=== PATIENT | female | born 1930 | race Caucasian/White ===

== ENCOUNTER 2016-07-25 07:41 | Day surgery (SDC) | payer OTHER ==
[2016-07-25] MEDS ORDERED: ceFAZolin 2 GM/DEXTROSE 100 ML IV ONE (07:50)
[2016-07-25] MEDS ORDERED: BACITRACIN IRRIGATION/NS 50,000 UNITS/1,000 ML BTL IRR ONE (07:50)
[2016-07-25] MEDS ORDERED: DIAZEPAM 5 MG TAB PO ONE (07:50)
[2016-07-25] MEDS ORDERED: diphenhydrAMINE 25 MG CAP PO ONE (07:50)
[2016-07-25] MEDS ORDERED: NS 1,000 ML IV ONE (07:50)
--- NOTE | 2016-07-25 08:10 | CPEKG ---
Heart Rate: 108 RR Interval: 556 P-R Interval: 120 QRSD Interval: 170 QT Interval: 340 QTC Interval: 456 P [place]: 0 QRS [place]: 0 EKG Severity - ABNORMAL ECG - EKG Impression: A-V DUAL-PACED COMPLEXES W/ SOME INHIBITION Electronically Signed By: Duane Berger 26-Jul-2016 09:30:46
[2016-07-25 08:25] LABS: % IMMATURE GRANULYOCYTES 0.2 % (0.0-1.1); ABSOLUTE IMMATURE GRANULOCYTES 0.01 10^3/uL (0.00-0.10); ADD DIFF? NO; ADD MORPH? NO; ADD SCAN? NO; ATYPICAL LYMPHOCYTE FLAG 20 (0-99); FRAGMENT RBC FLAG 0 (0-99); HEMATOCRIT 33.1 % (38.0-47.0); HEMOGLOBIN 11.1 g/dL (12.6-16.3); LEFT SHIFT FLG 0 (0-99); LIPEMIA HEMOLYSIS FLAG 80 (0-99); MEAN CELL HEMOGLOBIN 34.5 pg (27.9-34.1); MEAN CELL HEMOGLOBIN CONCENTR. 33.5 g/dL (32.4-36.7); MEAN CELL VOLUME 102.8 fL (81.5-99.8); MEAN PLATELET VOLUME 9.3 fL (8.7-11.7); PLATELET CLUMPS FLAG 10 (0-99); PLATELET COUNT 176 10^3/uL (150-400); RED BLOOD CELL COUNT 3.22 10^6/uL (4.18-5.33); RED CELL DISTRIBUTION WIDTH 12.6 % (11.5-15.2)
[2016-07-25 08:36] LABS: ANION GAP 12 mEq/L (8-16); CALCIUM 10.1 mg/dL (8.5-10.4); CARBON DIOXIDE 24 mEq/l (22-31); CHLORIDE 104 mEq/L (97-110); CREATININE 1.2 mg/dL (0.6-1.0); GLOMERULAR FILTRATION RATE 43; GLUCOSE 99 mg/dL (70-100); INR 1.3 (0.83-1.16); POTASSIUM 3.8 mEq/L (3.5-5.2); PROTIME(PATIENT) 16.2 SEC (12.0-15.0); SODIUM 140 mEq/L (134-144)
[2016-07-25] MEDS ORDERED: MIDAZOLAM 2 MG/2 ML VIAL ONE ×2 (11:05→11:48)
[2016-07-25] MEDS ORDERED: fentaNYL 100 MCG/2 ML INJ ONE (11:05)
[2016-07-25] MEDS ORDERED: LIDOCAINE 1% 30 ML SDV ONE (11:05)
[2016-07-25] MEDS ORDERED: LIDO/EPI 1% **for epidural** 30 ML SDV ONE (11:06)
[2016-07-25] MEDS ORDERED: BUPIVACAINE 0.5% 30 ML SDV ONE (11:06)
--- NOTE | 2016-07-25 11:31 | SUROPNOTE ---
[facility] Operative Report - Surgery Date of Procedure: 07/25/2016 Indication: This patient is an 86 year old woman, with a history of SSS, persistent atrial fibrillation, and high-grade AV block, presenting today for pacemaker generator change. First pacemaker generator and leads were implanted 05/2003. She had one generator change in 2008. The generator is now at elective replacement indicator. This will be her second generator change. Procedure performed: 1. Pocket revision 2. Removal of old pacemaker generator 3. Testing of chronic leads 4. Placement of new pacemaker generator Description of procedure: Risks, benefits, and alternatives were discussed in detail. Specifically, the risks of infection and possible need for extraction of old leads was reviewed in detail. Informed consent was obtained. The patient was brought to the catheterization laboratory and a time out was performed. Left anterior chest was sterilely prepped and draped. Ancef 2 grams was administered intravenously. 1% lidocaine and 0.5% Bupivacaine were utilized for local anesthetic. A skin incision was made over the old scar with a #10 blade. This was carried down to the pectoralis facia using Bovie and blunt dissection. There is an Ethibond suture attached to the header of the device, which was cut and removed. The old device was easily delivered from the pocket. The pocket was anesthetized with lidocaine with epinephrine and packed with a single Ray-Sandy antibiotic soaked gauze. Set screws were loosened from the device and the leads were easily removed, and the device was removed from the field. Then, using low energy Bovie , the leads were freed up from scar tissue and inspected for any evidence of insulation deterioration or break, and none were seen. Leads were tested and found to be functioning normally. We assess leads for noise in various positions and noise or changing impedance could not be demonstrated. Ray-Sandy gauze was removed from the pocket. The pocket was copiously irrigated with antibiotic solution and coated with D-stat liquid hemostat. A new pacemaker generator was brought to the field. Lead serial numbers were checked. Leads were connected to proper header ports. Generator was placed in the pocket with leads posterior. The generator was sutured in place with one 0-Ethibond suture. The pocket was closed with 2-0 and 3-0 interrupted Vicryl sutures, and then running 4-0 subcuticular Stratafix suture. Benzoin, steri strops, and Op-Site were placed. Hardware Implanted: The new pacemaker generator is a Biotronik Eluna 8 DR-T ProMRI, model 946827, serial [id number]. Hardware Explanted: Biotronik Cylos DR, model 947874, serial [id number]. Chronic Leads: Right ventricular lead is a Siemens/pacesetter model 1488TC-52, serial [id number], threshold 0.70V @ 0.40ms, R wave sensing 11.10mV, impedance 510 Ohms, implant date 06/09/2003. Right atrial lead is a Siemens/pacesetter model 1488TC-46, serial [id number], threshold 1.20V @ 0.40ms, P wave sensing 3.10mV, impedance 374 Ohms, implant date 06/09/2003. Portions of this report were generated using a [employer]. I have personally reviewed the report and agree with the documentation. Report scribed for Dr. Miah Sher. Report scribed by Peyton West.
[2016-07-25] MEDS ORDERED: HYDROCODONE/APAP 5/325 TAB PO PRN (12:08)
== END 2016-07-25 14:28 | disposition home or self-care (01) ==
LOC: FCATH 07:41
PROVIDERS: ATTEND Internal Medicine Interventional Cardiology
PROC: 0JPT3PZ Removal of Cardiac Rhythm Related Device from Trunk Subcutaneous Tissue and Fascia, Percutaneous Approach (ICD-10-PCS; principal; 2016-07-25)
PROC: 0JH636Z Insertion of Pacemaker, Dual Chamber into Chest Subcutaneous Tissue and Fascia, Percutaneous Approach (ICD-10-PCS; principal; 2016-07-25)
DX: Z45.010 Encounter for checking and testing of cardiac pacemaker pulse generator [battery] (principal); I49.5 Sick sinus syndrome; I48.1 Persistent atrial fibrillation
CPT/HCPCS: C1785; J0690; J2250; J3010

== ENCOUNTER → 2016-11-14 | Outpatient (CLI) | payer OTHER, MEDICARE | LOC: BMCIMAGING 14:08 | PROVIDERS: ATTEND Internal Medicine Rheumatology | DX: Z13.820 Encounter for screening for osteoporosis (principal); M81.0 Age-related osteoporosis without current pathological fracture ==

== ENCOUNTER 2018-07-31 02:41 | Inpatient (IN) | payer OTHER, MEDICARE ==
[2018-07-31 02:54] LABS: PLATELET COUNT 192 10^3/uL (150-400)
--- NOTE | 2018-07-31 03:24 | EDPHY ---
H & P Stated Complaint: chest cold this evening, cough and sob Time Seen by Provider: 07/31/18 02:47 HPI/ROS: HPI The patient presents with diarrhea, cough, general malaise. The patient is brought in by ambulance from [facility]. She says over the last several days she has been constipated, and took MiraLax yesterday. Last night she developed watery diarrhea, approximately 53-4 episodes. She tried to go to sleep but had a difficult time resting because she felt unwell. She noticed a rattling in her chest and a cough which she had been having for the last several days though had become worse. She has not had a fever. She has not had any sick contacts. She has no changes to her medications recently. The patient was hypoxic upon arrival of EMS with sats of about 84% which improved on 2 L of oxygen.. REVIEW OF SYSTEMS 10 systems were reviewed and negative with the exception of the elements mentioned in the history of present illness. PMHx: Atrial fibrillation on anticoagulation, hypertension, pacemaker in place Soc Hx: Resides at [facility] PHYSICAL General Appearance: Alert, no distress Eyes: Pupils equal and round no pallor or injection ENT, Mouth: Mucous membranes dry Respiratory: There are no retractions, coarse breath sounds throughout all lung stoner Cardiovascular: Regular rate and rhythm Gastrointestinal: Abdomen is soft and non-tender, no masses, bowel sounds normal Neurological: A&O, moves all extremities Skin: Warm and dry, no rashes Musculoskeletal: Neck is supple non tender Extremities: symmetrical, full range of motion Psychiatric: Patient is oriented X 3, there is no agitation Source: Patient, EMS Exam Limitations: No limitations - Personal History Current Tetanus/Diphtheria Vaccine: Unsure Current Tetanus Diphtheria and Acellular Pertussis (TDAP): Unsure Tetanus Vaccine Date: UNKNOWN, BUT PT STATES UTD - Medical/Surgical History Hx Asthma: No Hx Chronic Respiratory Disease: No Hx Diabetes: No Hx Cardiac Disease: Yes Hx Renal Disease: No Hx Cirrhosis: No Hx Alcoholism: No Hx HIV/AIDS: No Hx Splenectomy or Spleen Trauma: No Other PMH: AFIB/BRADYCARDIA, HTN, Pacemaker - Social History Smoking Status: Former smoker Constitutional: Initial Vital Signs Temperature (C) 36.8 C 07/31/18 02:46 Heart Rate 80 07/31/18 02:46 Respiratory Rate 18 07/31/18 02:46 Blood Pressure 192/90 H 07/31/18 02:46 O2 Sat (%) 88 L 07/31/18 02:46 O2 Delivery Mode Room Air O2 (L/minute) 2 Allergies/Adverse Reactions: escitalopram oxalate [From Lexapro] Allergy (Verified 07/31/18 02:50) nausea, weakness Home Medications: Medication Instructions Recorded Atorvastatin Calcium [Lipitor 20 20 mg PO HS 06/20/13 mg (*)] Cyanocobalamin [Vitamin B12 (*)] 100 mcg PO DAILY 06/20/13 Glucosamine Sulfate [Glucosamine 500 mg PO BID 06/20/13 Sulfate 500 MG (*)] LORazepam [Ativan (*)] 1 mg PO HS PRN 06/20/13 Levothyroxine [Synthroid 25 mcg 25 mcg PO DAILY06 06/20/13 (*)] Losartan/Hydrochlorothiazide 1 each PO DAILY 06/20/13 [Losartan-Hctz 50-12.5 mg Tab] Metoprolol Succinate Xr [Toprol Xl 50 mg PO DAILY 06/20/13 50 mg (*)] Mirtazapine [Remeron 15 mg (RX)] 15 mg PO HS 06/20/13 Vit A/Vit C/Vit E/Zinc/Copper 1 each PO BID 06/20/13 [Preservision Areds Tablet] Warfarin Sodium [Coumadin 5MG (*)] 5 mg PO DAILY 06/20/13 Zoledronic Acid/Mannitol&Water 5 mg IV Q364D 06/20/13 [Zoledronic Acid 5 mg/100 ml] Cholecalciferol Vit D3 [Vitamin D3 1,000 units PO DAILY 01/16/15 (*)] Ferrous Sulfate [Iron] 325 mg PO DAILY #0 capsule.sa 01/16/15 Herbals/Supplements -Info Only 1 ea PO DAILY 01/16/15 Acetaminophen [Tylenol ES 500 mg 1,000 mg PO Q8 #0 tab 03/02/15 (*)] Aspirin 81 mg PO DAILY 07/25/16 Medical Decision Making - Diagnostics EKG Interpretation: EKG: Complete interpretation has been separately recorded in the [facility] archive. Summary impression: AV dual paced rhythm Imaging Results: Chest x-ray two view shows streaky infiltrates bilaterally, interpreted by me, radiology interpretation is pending. Differential Diagnosis: 88-year-old female with history of atrial fibrillation on anticoagulation, hypertension presents for in by ambulance from [facility] with cough, shortness of breath, diarrhea. Here, she is hypoxic though improved on 2 L nasal cannula. She has coarse breath sounds throughout her lung stoner. Her abdominal exam is benign. Differential diagnosis includes Legionella pneumonia, influenza, community- acquired pneumonia, acute decompensated CHF. Patient's labs demonstrate hyponatremia, transaminitis. Chest x-ray shows peribronchial thickening with streaky infiltrates which could be related to pneumonia verses CHF with exacerbation. Patient received antibiotics for community-acquired pneumonia. She remained hypoxic. I plan to admit her to the hospitalist service and have discussed the case with Dr. Dillon. - Data Points Laboratory Results: Laboratory Results 07/31/18 02:50 07/31/18 02:50 07/31/18 07/31/18 07/31/18 03:30 03:30 02:50 WBC RBC Hgb Hct MCV MCH MCHC RDW Plt Count MPV Neut % (Auto) Lymph % (Auto) Weld % (Auto) Eos % (Auto) Baso % (Auto) Nucleat RBC Rel Count Absolute Neuts (auto) Absolute Lymphs (auto) Absolute Monos (auto) Absolute Eos (auto) Absolute Basos (auto) Absolute Nucleated RBC Immature Gran % Immature Gran # PT INR D-Dimer Sodium Potassium Chloride Carbon Dioxide Anion Gap BUN Creatinine Estimated GFR Glucose Calcium Total Bilirubin AST ALT Alkaline Phosphatase NT-Pro-B Natriuret Pep 2130 pg/mL H pg/mL (0-450) Total Protein Albumin Procalcitonin 0.03 ng/mL ng/mL (0.02-0.10) Nasal Influenza A PCR NEGATIVE FOR FLU A (NEGATIVE) Nasal Influenza B PCR NEGATIVE FOR FLU B (NEGATIVE) RSV (PCR) NEGATIVE FOR RSV (NEGATIVE) 07/31/18 07/31/18 07/31/18 02:50 02:50 02:50 WBC 6.93 10^3/uL 10^3/uL (3.80-9.50) RBC 3.25 10^6/uL L 10^6/uL (4.18-5.33) Hgb 11.6 g/dL L g/dL (12.6-16.3) Hct 33.7 % L % (38.0-47.0) MCV 103.7 fL H fL (81.5-99.8) MCH 35.7 pg H pg (27.9-34.1) MCHC 34.4 g/dL g/dL (32.4-36.7) RDW 13.0 % % (11.5-15.2) Plt Count 192 10^3/uL 10^3/uL (150-400) MPV 9.5 fL fL (8.7-11.7) Neut % (Auto) 63.8 % % (39.3-74.2) Lymph % (Auto) 20.5 % % (15.0-45.0) Weld % (Auto) 14.6 % H % (4.5-13.0) Eos % (Auto) 0.4 % L % (0.6-7.6) Baso % (Auto) 0.3 % % (0.3-1.7) Nucleat RBC Rel Count 0.0 % % (0.0-0.2) Absolute Neuts (auto) 4.42 10^3/uL 10^3/uL (1.70-6.50) Absolute Lymphs (auto) 1.42 10^3/uL 10^3/uL (1.00-3.00) Absolute Monos (auto) 1.01 10^3/uL H 10^3/uL (0.30-0.80) Absolute Eos (auto) 0.03 10^3/uL 10^3/uL (0.03-0.40) Absolute Basos (auto) 0.02 10^3/uL 10^3/uL (0.02-0.10) Absolute Nucleated RBC 0.00 10^3/uL 10^3/uL (0-0.01) Immature Gran % 0.4 % % (0.0-1.1) Immature Gran # 0.03 10^3/uL 10^3/uL (0.00-0.10) PT 17.7 SEC H SEC (12.0-15.0) INR 1.53 H (0.83-1.16) D-Dimer 0.61 ug/mLFEU H ug/mLFEU (0.00-0.50) Sodium 125 mEq/L L mEq/L (135-145) Potassium 3.9 mEq/L mEq/L (3.5-5.2) Chloride 91 mEq/L L mEq/L (97-110) Carbon Dioxide 19 mEq/l L mEq/l (22-31) Anion Gap 15 mEq/L H mEq/L (6-14) BUN 20 mg/dL mg/dL (7-23) Creatinine 1.2 mg/dL H mg/dL (0.6-1.0) Estimated GFR 42 Glucose 126 mg/dL H mg/dL (70-100) Calcium 9.0 mg/dL mg/dL (8.5-10.4) Total Bilirubin 0.5 mg/dL mg/dL (0.1-1.4) AST 71 IU/L H IU/L (14-46) ALT 60 IU/L H IU/L (9-52) Alkaline Phosphatase 96 IU/L IU/L (38-126) NT-Pro-B Natriuret Pep Total Protein 7.5 g/dL g/dL (6.3-8.2) Albumin 4.7 g/dL g/dL (3.5-5.0) Procalcitonin Nasal Influenza A PCR Nasal Influenza B PCR RSV (PCR) Medications Given: Enoxaparin Sodium (Lovenox) 30 mg SC DAILY [facility] Stop: 01/27/19 08:59 Last Admin: 07/31/18 07:22 Dose: 30 mg Metoprolol Succinate (Toprol Xl) 50 mg PO DAILY [facility] Stop: 01/27/19 08:59 Last Admin: 07/31/18 07:22 Dose: 50 mg Discontinued Medications Azithromycin 500 mg/ Sodium (Chloride) 255 mls @ 255 mls/hr IV EDNOW ONE PRN Reason: Protocol Stop: 07/31/18 05:19 Last Admin: 07/31/18 05:19 Dose: 255 mls Ceftriaxone Sodium/Dextrose (Rocephin 1 Gm (Premix)) 50 mls @ 100 mls/hr IV EDNOW ONE PRN Reason: Protocol Stop: 07/31/18 04:49 Last Admin: 07/31/18 04:40 Dose: 50 mls Sodium Chloride (Ns) 500 mls @ 1,000 mls/hr IV EDNOW ONE PRN Reason: Protocol Stop: 07/31/18 04:55 Last Admin: 07/31/18 04:41 Dose: 500 mls Departure - Departure Disposition: [facility] Acute Clinical Impression: Hyponatremia, Hypoxia Pneumonia Qualifiers: Pneumonia type: due to unspecified organism Laterality: bilateral Lung location : unspecified part of lung Qualified Code(s): J18.9 - Pneumonia, unspecified organism Acute exacerbation of congestive heart failure Qualifiers: Heart failure type: unspecified Qualified Code(s): I50.9 - Heart failure, unspecified Condition: Fair
[2018-07-31 03:31] LABS: INR 1.53 (0.83-1.16); PROTIME(PATIENT) 17.7 SEC (12.0-15.0)
[2018-07-31] MEDS ORDERED: AZITHROMYCIN IV 500 MG in NS 250 ML IV ONE (04:20)
[2018-07-31] MEDS ORDERED: NS 500 ML IV ONE (04:26)
[2018-07-31] MEDS ORDERED: ONDANSETRON DISINTEGRATING 4 MG TAB PO PRN (04:38)
[2018-07-31] MEDS ORDERED: ACETAMINOPHEN 325 MG TAB PO PRN (04:38)
[2018-07-31] MEDS ORDERED: ONDANSETRON 4 MG/2 ML VIAL IVP PRN (04:38)
--- NOTE | 2018-07-31 05:13 | PDGENHP ---
History and Physical - Chief Complaint SOB, cough, diarrhea. - History of Present Illness Source-patient provides history appears reliable. EMR was reviewed and case discussed with ED provider. HPI-this is a very pleasant 80-year-old female with past medical history significant for atrial fibrillation sick sinus syndrome status post pacer, HTN, chronic hyponatremia on diuretic therapy, severe MR, moderate to severe TR, HTN , HLD, CHF, hypothyroidism, CKD, pulmonary hypertension who presents emergency department today with complaints of new onset cough, shortness of breath and cold-type symptoms. Patient reports that she was feeling constipated yesterday she took a laxative and today had 4-5 episodes of diarrhea nonbloody. Patient reports some abdominal distension GI upset nausea. She has not had any vomiting. She is unsure if she has had any sick contacts but notes that she does live at [facility] a independent living. Patient denies any fevers, chills, sweats. She denies any lower extremity edema, orthopnea, PND. She does not typically wearing oxygen at home. She reports that she had new onset of cough congestion and a "rattling sound ". Patient also reports that before going to bed she had a severe case of dry mouth and drink approximately a qt of water before going to bed. When she woke up she felt short of breath with cough and symptoms. History Information - Allergies/Home Medication List Allergies/Adverse Reactions: escitalopram oxalate [From Lexapro] Allergy (Verified 07/31/18 02:50) nausea, weakness Home Medications: Atorvastatin Calcium [Lipitor 20 mg (*)] 20 mg PO HS 06/20/13 [Last Taken 21:00] Cyanocobalamin [Vitamin B12 (*)] 100 mcg PO DAILY 06/20/13 [Last Taken 02/26/15] Glucosamine Sulfate [Glucosamine Sulfate 500 MG (*)] 500 mg PO BID 06/20/13 [ Last Taken 02/26/15] LORazepam [Ativan (*)] 1 mg PO HS PRN 06/20/13 [Last Taken 07/24/16 21:00] Levothyroxine [Synthroid 25 mcg (*)] 25 mcg PO DAILY06 06/20/13 [Last Taken 04/30 08:00] Losartan/Hydrochlorothiazide [Losartan-Hctz 50-12.5 mg Tab] 1 each PO DAILY 10/26 [Last Taken 07/25/16 06:30] Metoprolol Succinate Xr [Toprol Xl 50 mg (*)] 50 mg PO DAILY 06/20/13 [Last Taken 07/25/16 06:30] Mirtazapine [Remeron 15 mg (RX)] 15 mg PO HS 06/20/13 [Last Taken 07/24/16 21:00 ] Vit A/Vit C/Vit E/Zinc/Copper [Preservision Areds Tablet] 1 each PO BID [Last Taken 02/26/15] Warfarin Sodium [Coumadin 5MG (*)] 5 mg PO DAILY 06/20/13 [Last Taken 07/21/16 21:00] Zoledronic Acid/Mannitol&Water [Zoledronic Acid 5 mg/100 ml] 5 mg IV Q364D 06/20 [Last Taken 03/15/16 08:00] Cholecalciferol Vit D3 [Vitamin D3 (*)] 1,000 units PO DAILY 01/16/15 [Last Taken 02/26/15] Herbals/Supplements -Info Only 1 ea PO DAILY 01/16/15 [Last Taken 02/26/15] Aspirin 81 mg PO DAILY 07/25/16 [Last Taken 07/24/16 21:00] I have personally reviewed and updated: family history, medical history, social history, surgical history - Past Medical History Additional medical history: CHF, moderate TR, severe MR, atrial fib/sss s/p pacer, shingles, chronic hyponatremia on diuretic therapy, macular degneeration , HTN, hLD, depression, hypothyroidism, hx GIB, CKD, pulmonary HTN, osteoporosis , neuropathy feet. - Surgical History Additional surgical history: pacer, L hip ORIF 2014, cardiac ablation 01/2018, bilateral cataract extraction with lens placement. - Family History Additional family history: atrial fibrillation. no CAD/[place] - Social History Smoking Status: Former smoker Alcohol Use: Occasionally (patient has 1-2 drinks per day.) Drug Use: None, Other Additional social history: Patient lives [facility] living. COR - DNR/DNI. Review of Systems Review of Systems: ROS: 10pt was reviewed & negative except for what was stated in HPI & below Constitutional: Denies: chills, fever EENMT: Reports: no symptoms Cardiac: Denies: chest pain, edema, lightheadedness, palpitations Respiratory: Reports: cough, shortness of breath. Denies: orthopnea, wheezing Gastrointestinal: Reports: abdominal distention, diarrhea, nausea. Denies: vomitting, black stools, rectal bleeding, abdominal pain Genitourinary: Reports: no symptoms Muscolosketal: Reports: no symptoms Skin: Reports: no symptoms Neurological: Reports: numbness (Chronic neuropathy low both feet.) Hematologic/Lymphatic: Reports: anemia Physical Exam Physical Exam: Selected Entries 07/31/18 02:46 Blood Pressure Automatic Method Heart Rate 80 Respiratory 18 Rate O2 Sat (%) 88 L Temperature (C) 36.8 C Blood Pressure 192/90 H Mean Arterial 124 H Pressure (MAP) O2 (L/minute) 2 O2 Delivery Room Air Mode Temperature Oral Source Temp Pulse Resp BP Pulse Ox 36.7 C 79 18 178/100 H 98 07/31/18 04:28 07/31/18 04:28 07/31/18 02:46 07/31/18 04:28 07/31/18 04:28 O2 (L/minute) 3 Constitutional: no apparent distress, not in pain, chronically ill appearing, other (NAD. pleasant frail, pale elderly lady lays comfortably in bed awake. pleasant and cooperative) Eyes: PERRL (lens reflex appreciated bilaterally), EOMI, No icteric sclera, No pale conjunctiva, No scleral injection Ears, Nose, Mouth, Throat: moist mucous membranes, other (No nasal discharge), No poor dentition Cardiovascular: regular rate and rhythym, no murmur, rub, or gallop, pulses symmetric bilaterally, No edema Peripheral Pulses: 1+: dorsalis-pedis (R), dorsalis-pedis (L) Respiratory: no respiratory distress, reduced air movement, inspiratory crackles , No clear to auscultation, No expiratory wheeze, No bronchial breath sounds, No respiratory distress Gastrointestinal: soft, non-tender abdomen, no palpable masses, distension, other (Hypoactive bowel sounds), No tenderness, No ascites, No guarding Genitourinary: no bladder tenderness, No greenberg in urethra Skin: warm, no rashes or abrasions, other (Pallor, contusion to right lower leg. ) Musculoskeletal: generalized weakness, other (Patient sits up independently moves all extremities.) Neurologic: AAOx3, sensation intact bilaterally, numbness (Bilateral feet which is chronic per patient.), CN II-XII Intact, other (Grossly nonfocal), No facial droop Psychiatric: interacting appropriately, not anxious, not encephalopathic, thought process linear, poor memory (Some memory deficits.) Lab Data & Imaging Review 07/31/18 02:50 07/31/18 02:50 WBC 6.93 10^3/uL (3.80-9.50) 07/31/18 02:50 RBC 3.25 10^6/uL (4.18-5.33) L 07/31/18 02:50 Hgb 11.6 g/dL (12.6-16.3) L 07/31/18 02:50 Hct 33.7 % (38.0-47.0) L 07/31/18 02:50 MCV 103.7 fL (81.5-99.8) H 07/31/18 02:50 MCH 35.7 pg (27.9-34.1) H 07/31/18 02:50 MCHC 34.4 g/dL (32.4-36.7) 07/31/18 02:50 RDW 13.0 % (11.5-15.2) 07/31/18 02:50 Plt Count 192 10^3/uL (150-400) 07/31/18 02:50 MPV 9.5 fL (8.7-11.7) 07/31/18 02:50 Neut % (Auto) 63.8 % (39.3-74.2) 07/31/18 02:50 Lymph % (Auto) 20.5 % (15.0-45.0) 07/31/18 02:50 Mccracken % (Auto) 14.6 % (4.5-13.0) H 07/31/18 02:50 Eos % (Auto) 0.4 % (0.6-7.6) L 07/31/18 02:50 Baso % (Auto) 0.3 % (0.3-1.7) 07/31/18 02:50 Nucleat RBC Rel Count 0.0 % (0.0-0.2) 07/31/18 02:50 Absolute Neuts (auto) 4.42 10^3/uL (1.70-6.50) 07/31/18 02:50 Absolute Lymphs (auto) 1.42 10^3/uL (1.00-3.00) 07/31/18 02:50 Absolute Monos (auto) 1.01 10^3/uL (0.30-0.80) H 07/31/18 02:50 Absolute Eos (auto) 0.03 10^3/uL (0.03-0.40) 07/31/18 02:50 Absolute Basos (auto) 0.02 10^3/uL (0.02-0.10) 07/31/18 02:50 Absolute Nucleated RBC 0.00 10^3/uL (0-0.01) 07/31/18 02:50 Immature Gran % 0.4 % (0.0-1.1) 07/31/18 02:50 Immature Gran # 0.03 10^3/uL (0.00-0.10) 07/31/18 02:50 PT 17.7 SEC (12.0-15.0) H 07/31/18 02:50 INR 1.53 (0.83-1.16) H 07/31/18 02:50 D-Dimer 0.61 ug/mLFEU (0.00-0.50) H 07/31/18 02:50 Sodium 125 mEq/L (135-145) L 07/31/18 02:50 Potassium 3.9 mEq/L (3.5-5.2) 07/31/18 02:50 Chloride 91 mEq/L (97-110) L 07/31/18 02:50 Carbon Dioxide 19 mEq/l (22-31) L 07/31/18 02:50 Anion Gap 15 mEq/L (6-14) H 07/31/18 02:50 BUN 20 mg/dL (7-23) 07/31/18 02:50 Creatinine 1.2 mg/dL (0.6-1.0) H 07/31/18 02:50 Estimated GFR 42 07/31/18 02:50 Glucose 126 mg/dL (70-100) H 07/31/18 02:50 Calcium 9.0 mg/dL (8.5-10.4) 07/31/18 02:50 Total Bilirubin 0.5 mg/dL (0.1-1.4) 07/31/18 02:50 AST 71 IU/L (14-46) H 07/31/18 02:50 ALT 60 IU/L (9-52) H 07/31/18 02:50 Alkaline Phosphatase 96 IU/L (38-126) 07/31/18 02:50 NT-Pro-B Natriuret Pep 2130 pg/mL (0-450) H 07/31/18 02:50 Total Protein 7.5 g/dL (6.3-8.2) 07/31/18 02:50 Albumin 4.7 g/dL (3.5-5.0) 07/31/18 02:50 Urine Color YELLOW 07/31/18 04:25 Urine Appearance CLEAR 07/31/18 04:25 Urine pH 6.0 (5.0-7.5) 07/31/18 04:25 Ur Specific Jackson 1.010 (1.002-1.030) 07/31/18 04:25 Urine Protein NEGATIVE (NEGATIVE) 07/31/18 04:25 Urine Ketones NEGATIVE (NEGATIVE) 07/31/18 04:25 Urine Blood NEGATIVE (NEGATIVE) 07/31/18 04:25 Urine Nitrate NEGATIVE (NEGATIVE) 07/31/18 04:25 Urine Bilirubin NEGATIVE (NEGATIVE) 07/31/18 04:25 Urine Urobilinogen NEGATIVE EU (0.2-1.0) 07/31/18 04:25 Ur Leukocyte Esterase 2+ (NEGATIVE) H 07/31/18 04:25 Urine RBC 1-3 /hpf (0-3) 07/31/18 04:25 Urine WBC 15-25 /hpf (0-3) H 07/31/18 04:25 Ur Epithelial Cells TRACE /lpf (NONE-1+) 07/31/18 04:25 Urine Bacteria TRACE /hpf (NONE SEEN) H 07/31/18 04:25 Urine Mucus TRACE /lpf (NONE-1+) 07/31/18 04:25 Urine Glucose NEGATIVE (NEGATIVE) 07/31/18 04:25 Nasal Influenza A PCR NEGATIVE FOR FLU A (NEGATIVE) 07/31/18 03:30 Nasal Influenza B PCR NEGATIVE FOR FLU B (NEGATIVE) 07/31/18 03:30 RSV (PCR) NEGATIVE FOR RSV (NEGATIVE) 07/31/18 03:30 Visualized and Interpreted Chest x-ray results: Yes Chest X-Ray results: other (Patient with cephalization bilateral lungs. Appears to be pulmonary edema. No consolidations. No effusions. Pacer in place. Mild cardiomegaly.) EKG additional interpertation: EKG was reviewed myself. Av paced rhythm in the 70s. Assessment & Plan Assessment: this is a very pleasant 80-year-old female with past medical history significant for atrial fibrillation sick sinus syndrome status post pacer, HTN, chronic hyponatremia on diuretic therapy, severe MR, moderate to severe TR, HTN , HLD, CHF, hypothyroidism, CKD, pulmonary hypertension who presents emergency department today with complaints of new onset cough, shortness of breath and cold-type symptoms started suddenly when patient woke up from sleep. #Shortness of breath - patient reporting symptoms that could be consistent with a viral illness given her complaint of multiple episodes of diarrhea, nausea and cough. A respiratory PCR is pending. Flu A/B was negative. Chest x-ray does show cephalization evidence of pulmonary edema. Patient's current sodium is quite low and it is not quite clear whether this is related to her diuretics versus volume overload. Patient clinically appears to be euvolemic other than her chest x-ray. She also admits to drinking approximately a qt of water just before going to bed. Will fluid restrict the patient DC IV fluids. She did receive antibiotics however a added on a procalcitonin this was negative. Will not continue additional antibiotics at this time. Patient has denied any fevers or chills. Patient's INR subtherapeutic and she is on Coumadin for AFib but I would have a low suspicion for PE. Additionally her D-dimer is 0.66 by however when adjusted for age is within normal limits. Hypoxia - continuous supplemental oxygen patient saturating 97% nasal cannula. Acute on chronic CHF exacerbation decompensated - will plan to fluid restrict and sodium restrict. Saline lock IV. Will monitor ins and outs. Hold off on diuretic therapy until we can reassess patient's sodium. Her last available BMP was drawn 07/04/2018 showing a sore dm within normal limits. Accelerated hypertension - patient's blood pressures were elevated upon arrival to the ED. Blood pressure is currently improved. Hydralazine will be made available p.r.n.. Will plan to resume patient's beta hali. Holding her diuretic therapy pending repeated sodium. Hyponatremia - patient is already on diuretic therapy there for urine studies will be last helpful but suspect that patient has a component of overload given her pulmonary edema on imaging and dyspnea. She also admits to large volume oral hydration just before bed when her symptoms started. Sodium and fluid restriction as noted above with plans for repeat testing this morning. Anemia of chronic disease - H&H close to baseline. No evidence of active bleeding. Continue iron supplementation and monitoring of H&H. Subtherapeutic INR - resume dosing of Coumadin. CKD stage 3 - creatinine 1.2 at baseline. Hyperglycemia - no history of diabetes. No need for insulin therapy at this time. Transaminitis - likely secondary to vascular congestion versus a viral etiology. Will plan to monitor with a.m. Labs. Elevated BNP - secondary to volume overload, CHF exacerbation and hypoxia. Chronic AFib status post pacer - monitor on tele. Av paced HLD - continue statin when med rec available. Depression - patient of without any complaints of SI or HI. She is pleasant and cooperative. Resume patient's Remeron when med rec available. Hypothyroidism - resume levothyroxine replacement when med rec available. Pulmonary hypertension - continue supplemental oxygen. FEN - SLIV. Cardiac diet with sodium/fluid restriction. electrolyte monitoring and replacement prn. PPX - SCDs. resume coumadin. COR - DNR/DNI. Dispo - Patient admitted to inpatient status given severity of her symptoms and generalized weakness, hypoxia and respiratory status. Anticipate > 2 midnight stay.
--- NOTE | 2018-07-31 05:32 | CPEKG ---
Test Reason : OPEN Blood Pressure : / mmHG Vent. Rate : 076 BPM Atrial Rate : 071 BPM P-R Int : 164 ms QRS Dur : 150 ms QT Int : 465 ms P-R-T Axes : 000 020 117 degrees QTc Int : 523 ms A-V dual-paced rhythm with some inhibition Confirmed by Nory Dumont ([id number]) on 07/31/2018 5:31:48 AM Referred By: Nory Dumont Confirmed By:Nory Dumont
[2018-07-31] MEDS: ENOXAPARIN 30 MG/0.3 ML SYR SC SCH (07:22)
[2018-07-31] MEDS ORDERED: METOPROLOL SUCCINATE XR 50 MG TAB PO SCH (09:00)
--- NOTE | 2018-07-31 16:52 | HOSPPROG ---
Hospitalist Progress Note Assessment/Plan: 88 yo F w hyponatremia, airspace disease hyponatremia: had diarrhea, drank 1 qt of water yesterday restart diuretics follow airspace disease: will treat for atypical pneumonia on amiodarone needs outpt follow up Subjective: cxr interp by me Objective: Vital Signs Temp Pulse Resp BP Pulse Ox 36.3 C 75 18 132/66 H 91 L 07/31/18 15:22 07/31/18 15:22 07/31/18 15:22 07/31/18 15:22 07/31/18 15:22 Laboratory Results 07/31/18 14:45 07/30/18 07/31/18 08/01/18 05:59 05:59 05:59 Intake Total 500 Balance 500 PT 17.7 SEC (12.0-15.0) H 07/31/18 02:50 INR 1.53 (0.83-1.16) H 07/31/18 02:50 - Physical Exam Constitutional: no apparent distress Eyes: PERRL, anicteric sclera Ears, Nose, Mouth, Throat: moist mucous membranes, hearing normal Cardiovascular: regular rate and rhythym, no murmur, rub, or gallop Respiratory: no respiratory distress, other (fine crackles b/l) Gastrointestinal: normoactive bowel sounds, soft, non-tender abdomen Genitourinary: No greenberg in urethra Skin: warm, normal color Musculoskeletal: full muscle strength Neurologic: AAOx3 ICD10 Worksheet Patient Problems: Problems Problem Status Onset Acute exacerbation of congestive heart failure Acute Hyponatremia Acute Hypoxia Acute Pneumonia Acute Near syncope Acute
[2018-07-31] MEDS ORDERED: WARFARIN SODIUM 2.5 MG TAB PO SCH (17:30)
[2018-07-31] MEDS: PRESERVISION AREDS2 FORMULA EYE VIT 1 EACH PO SCH (17:51)
[2018-07-31] MEDS ORDERED: ATORVASTATIN CALCIUM 40 MG TAB PO SCH (21:00)
[2018-07-31] MEDS ORDERED: ASPIRIN 81 MG CHEWABLE TAB PO SCH (21:00)
[2018-07-31] MEDS ORDERED: MIRTAZAPINE 15 MG TAB PO SCH (21:00)
[2018-07-31] MEDS ORDERED: LORazepam 0.5 MG TAB PO SCH (21:00)
[2018-07-31] MEDS: DOXYCYCLINE INJ 100 MG in NS 250 ML IV SCH (21:48)
[2018-07-31] MEDS: LOSARTAN POTASSIUM 50 MG TAB PO SCH (21:49)
[2018-08-01] MEDS ORDERED: LEVOTHYROXINE 50 MCG TAB PO SCH (06:00)
[2018-08-01 06:02] LABS: INR 1.79 (0.83-1.16)
[2018-08-01] MEDS ORDERED: Herbals/Supplements -Info Only PO SCH (09:00)
[2018-08-01] MEDS ORDERED: METOPROLOL SUCCINATE XR 50 MG TAB PO SCH (09:00)
[2018-08-01] MEDS: DOXYCYCLINE INJ 100 MG in NS 250 ML IV SCH (09:53)
[2018-08-01] MEDS: LOSARTAN POTASSIUM 50 MG TAB PO SCH (10:30)
[2018-08-01] MEDS: PRESERVISION AREDS2 FORMULA EYE VIT 1 EACH PO SCH (10:30)
[2018-08-01] MEDS: ENOXAPARIN 30 MG/0.3 ML SYR SC SCH (10:30)
--- NOTE | 2018-08-01 10:32 | HOSPPROG ---
Hospitalist Progress Note Assessment/Plan: 88 yo F w hyponatremia, airspace disease hyponatremia: had diarrhea, drank 1 qt of water yesterday improved w fluid restriction = water intoxication airspace disease: will treat for atypical pneumonia on amiodarone has outpt follow up w group work program aide home today > 30 minutes see dc summary Subjective: Na normalized. feels well Objective: Vital Signs Temp Pulse Resp BP Pulse Ox 36.5 C 72 16 129/60 H 96 08/01/18 07:19 08/01/18 10:30 08/01/18 07:19 08/01/18 10:30 08/01/18 07:19 Laboratory Results 08/01/18 05:10 07/31/18 08/01/18 08/02/18 05:59 05:59 05:59 Intake Total 500 700 Balance 500 700 PT 20.0 SEC (12.0-15.0) H 08/01/18 05:10 INR 1.79 (0.83-1.16) H 08/01/18 05:10 - Physical Exam Constitutional: no apparent distress, appears nourished Eyes: PERRL, anicteric sclera Ears, Nose, Mouth, Throat: moist mucous membranes, hearing normal Cardiovascular: regular rate and rhythym, no murmur, rub, or gallop Respiratory: no respiratory distress, other (fine crackles b/l) Gastrointestinal: normoactive bowel sounds, soft, non-tender abdomen Genitourinary: no bladder fullness, No greenberg in urethra Skin: warm, normal color Musculoskeletal: full muscle strength Neurologic: AAOx3 ICD10 Worksheet Patient Problems: Problems Problem Status Onset Acute exacerbation of congestive heart failure Acute Hyponatremia Acute Hypoxia Acute Pneumonia Acute Near syncope Acute
[2018-08-01 11:03] VITALS: BP 143/59
--- NOTE | 2018-08-01 11:04 | GDS ---
[f rep st] DISCHARGE SUMMARY DISCHARGE DIAGNOSES: 1. Hyponatremia. 2. Suspected atypical pneumonia. 3. History of atrial fibrillation or supraventricular tachycardia ablation. 4. Diastolic heart failure. 5. Severe mitral regurgitation. 6. Pacemaker. HOSPITAL COURSE: Please see admission history and physical by Dr. Shara Dillon. The patient present ed with on cough, shortness of breath, and cold-like symptoms. Chest x-ray showed new reticular nodu le with superimposed inflammatory changes. She was also found to have a sodium of 125, where about 6 weeks ago, it was 135. She drank about a quart and half of water prior to sleep. She was euvolemic on exam. Regarding her hyponatremia, she was managed with fluid restriction and it aristides slowly to 1 32 today at an appropriate rate. She was treated with doxycycline for atypical pneumonia. There was some concern the patient could have amiodarone lung toxicity and that she is on it. Notabl y, she did not have an oxygen requirement. There was no chest CT. I wrote a note to her cardiologis t, Dr. Lu at [facility]. She has rapid followup for evaluation of this. DISCHARGE MEDICATIONS: Doxycycline to complete a 7-day course. /[id number]/MODL
--- NOTE | 2018-08-01 11:32 | ASMTCMCOM ---
CM Note CM Note Notes: Pts case discussed w/ Dr. Whitehead. Pt is a 88 y/o female admitted for hypoxia, pneumonia and hyponatremia. Pt is being d/c'd today. Pt lives at [facility]. Therapies have both cleared pt to d/c without any needs. CM available for changes. Plan: Independent Date Signed: 08/01/2018 11:32 AM Electronically Signed By:KEENA Garcia
--- NOTE | 2018-08-01 16:50 | PDMN ---
Medical Necessity Medical necessity: Pt meets IP criteria per & MCG M-190; est los >2 mn for eval/tx of acute on chronic CHF exacerbation w/hypoxia, hyponatremia & possible viral illness;admit for further workup/monitoring & med management; comorbid advanced age, AFIB, SSS, CKD, chronic hyponatremia; per H&P & order 07/31/18
[2018-08-02] MEDS ORDERED: WARFARIN SODIUM 5 MG TAB PO SCH (16:00)
== END 2018-08-01 13:57 | disposition home or self-care (01) | DRG 194 ==
LOC: EDUNIT# → F3E 06:04
PROVIDERS: ADMIT Family Medicine; ATTEND Family Medicine
DX: J18.9 Pneumonia, unspecified organism (principal); E87.1 Hypo-osmolality and hyponatremia; I13.0 Hypertensive heart and chronic kidney disease with heart failure and stage 1 through stage 4 chronic kidney disease, or unspecified chronic kidney disease; I50.30 Unspecified diastolic (congestive) heart failure; N18.9 Chronic kidney disease, unspecified; I48.2 Chronic atrial fibrillation; E03.9 Hypothyroidism, unspecified; I49.5 Sick sinus syndrome; R91.1 Solitary pulmonary nodule; I08.1 Rheumatic disorders of both mitral and tricuspid valves; Z95.0 Presence of cardiac pacemaker; Z99.81 Dependence on supplemental oxygen; Z79.01 Long term (current) use of anticoagulants; Z87.891 Personal history of nicotine dependence
CPT/HCPCS: 96365; 97161-GP; 97165-GO; J0456; J0696; J1650

== ENCOUNTER 2018-10-01 20:02 | Emergency (ER) | payer OTHER, MEDICARE ==
--- NOTE | 2018-10-01 20:14 | EDPHY ---
H & P Smoking Status: Former smoker Time Seen by Provider: 10/01/18 20:12 HPI/ROS: Chief complaint. Headache, high blood pressure HPI. 80-year-old female presents with headache that began about 5:00 p.m.. She was sitting in a chair she some this gradual onset pressure type headache. She felt slightly dizzy. She did not feel right. She took her blood pressure was 170/93. She was concerned she was having a stroke. She had no chest pain or shortness of breath. No change in vision. No abdominal pain. No weakness or paresthesias. ROS 10 systems were reviewed and negative with the exception of the elements mentioned in the history of present illness (Deric Delgadillo) Past Medical/Surgical History: Atrial fibrillation, hypertension, pacemaker (Deric Delgadillo) Social History: , nonsmoker, no alcohol (Deric Delgadillo) Physical Exam: General Appearance: Alert pleasant well-developed female mild distress. Vital signs stable zip. Blood pressure 178/82 Eyes: Pupils equal and round no pallor or injection. ENT, Mouth: Mucous membranes are moist. Respiratory: There are no retractions, lungs are clear to auscultation. Cardiovascular: Regular rate and rhythm. Gastrointestinal: Abdomen is soft and nontender, no masses, bowel sounds normal. Neurological: Awake and alert, sensory and motor exams grossly normal. Speech is normal. Cranial nerves are intact. There is no pronator drift. Finger-to- nose and leg strength are normal Skin: Warm and dry, no rashes. Musculoskeletal: Neck is supple nontender. Extremities symmetrical, full range of motion. Psychiatric: Patient is oriented X 3, there is no agitation. (Deric Delgadillo) Constitutional: Initial Vital Signs Temperature (C) 36.7 C 10/01/18 20:08 Heart Rate 75 10/01/18 20:08 Respiratory Rate 158 H 10/01/18 20:08 Blood Pressure 178/82 H 10/01/18 20:08 O2 Sat (%) 95 10/01/18 20:08 O2 Delivery Mode Room Air Allergies/Adverse Reactions: escitalopram oxalate [From Lexapro] Allergy (Verified 10/01/18 20:10) nausea, weakness Home Medications: Medication Instructions Recorded LORazepam [Ativan (*)] 0.75 mg PO HS 06/20/13 Metoprolol Succinate Xr [Toprol Xl 50 mg PO DAILY 06/20/13 50 mg (*)] Mirtazapine [Remeron 15 mg (RX)] 15 mg PO HS 06/20/13 Vit A/Vit C/Vit E/Zinc/Copper 1 each PO BID 06/20/13 [Preservision Areds Tablet] Warfarin Sodium [Coumadin 5MG (*)] 5 mg PO SUTH@16 06/20/13 Herbals/Supplements -Info Only 1 ea PO DAILY 01/16/15 Aspirin [Aspirin 81mg (*)] 81 mg PO HS 07/25/16 Acetaminophen [Tylenol ES 500 mg 500 - 1,000 mg PO Q8 PRN 07/31/18 (*)] Amiodarone HCl [Pacerone (*)] 200 mg PO DAILY 07/31/18 Atorvastatin Calcium [Lipitor 40 40 mg PO HS 07/31/18 mg (*)] Furosemide [Lasix 20 MG (*)] 20 mg PO DAILY 07/31/18 Levothyroxine [Synthroid 50 mcg 50 mcg PO DAILY06 07/31/18 (*)] Losartan Potassium [Cozaar 50 mg 50 mg PO BID 07/31/18 (*)] Warfarin Sodium [Coumadin 2.5MG 2.5 mg PO MOTUWEFRSA@16 07/31/18 (*)] Doxycycline Hyclate 100 mg PO BID #10 tab 08/01/18 Medical Decision Making - Diagnostics EKG Interpretation: EKG interpreted by me shows a paced rhythm with normal axis. QRS shows interventricular conduction delay. No significant ST elevation or depression. No arrhythmia. The rate is 75 (Deric Delgadillo) Imaging Results: Imaging Impressions Head CT 10/01/18 20:13 Impression: 1. Negative for intracranial hemorrhage. 2. 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 Results called to Cristobal Giron M.D. on 10/01/2018 at 21:57. Procedures: IV normal saline, monitor Tylenol for headache (Deric Delgadillo) Other Provider: 2199: I spoke with Dr. Meyers, radiologist, regarding patient's head CT. There is no bleed or acute findings. We will road test her now. 2224: Reassessed patient and discussed laboratory and imaging findings. Return precautions provided; patient and her daughter are comfortable with this plan (Cristobal Giron) Care Turn Over: Care to Dr. Giron at 9:30 p.m. (Deric Delgadillo) - Data Points Laboratory Results: Laboratory Results 10/01/18 20:37 10/01/18 20:37 10/01/18 10/01/18 10/01/18 20:41 20:37 20:37 WBC RBC Hgb Hct MCV MCH MCHC RDW Plt Count MPV Neut % (Auto) Lymph % (Auto) [place] % (Auto) Eos % (Auto) Baso % (Auto) Nucleat RBC Rel Count Absolute Neuts (auto) Absolute Lymphs (auto) Absolute Monos (auto) Absolute Eos (auto) Absolute Basos (auto) Absolute Nucleated RBC Immature Gran % Immature Gran # PT 25.3 SEC H SEC (12.0-15.0) INR 2.44 H (0.83-1.16) APTT 42.4 SEC H SEC (23.0-38.0) Sodium 129 mEq/L L mEq/L (135-145) Potassium 3.4 mEq/L L mEq/L (3.5-5.2) Chloride 95 mEq/L L mEq/L (97-110) Carbon Dioxide 19 mEq/l L mEq/l (22-31) Anion Gap 15 mEq/L H mEq/L (6-14) BUN 20 mg/dL mg/dL (7-23) Creatinine 1.2 mg/dL H mg/dL (0.6-1.0) Estimated GFR 42 Glucose 157 mg/dL H mg/dL (70-100) Calcium 8.9 mg/dL mg/dL (8.5-10.4) POC Troponin I 0.01 ng/mL ng/mL (0.00-0.08) 10/01/18 20:37 WBC 5.39 10^3/uL 10^3/uL (3.80-9.50) RBC 2.97 10^6/uL L 10^6/uL (4.18-5.33) Hgb 10.4 g/dL L g/dL (12.6-16.3) Hct 30.3 % L % (38.0-47.0) MCV 102.0 fL H fL (81.5-99.8) MCH 35.0 pg H pg (27.9-34.1) MCHC 34.3 g/dL g/dL (32.4-36.7) RDW 13.7 % % (11.5-15.2) Plt Count 180 10^3/uL 10^3/uL (150-400) MPV 9.6 fL fL (8.7-11.7) Neut % (Auto) 57.3 % % (39.3-74.2) Lymph % (Auto) 25.2 % % (15.0-45.0) [place] % (Auto) 14.5 % H % (4.5-13.0) Eos % (Auto) 1.9 % % (0.6-7.6) Baso % (Auto) 0.7 % % (0.3-1.7) Nucleat RBC Rel Count 0.0 % % (0.0-0.2) Absolute Neuts (auto) 3.09 10^3/uL 10^3/uL (1.70-6.50) Absolute Lymphs (auto) 1.36 10^3/uL 10^3/uL (1.00-3.00) Absolute Monos (auto) 0.78 10^3/uL 10^3/uL (0.30-0.80) Absolute Eos (auto) 0.10 10^3/uL 10^3/uL (0.03-0.40) Absolute Basos (auto) 0.04 10^3/uL 10^3/uL (0.02-0.10) Absolute Nucleated RBC 0.00 10^3/uL 10^3/uL (0-0.01) Immature Gran % 0.4 % % (0.0-1.1) Immature Gran # 0.02 10^3/uL 10^3/uL (0.00-0.10) PT INR APTT Sodium Potassium Chloride Carbon Dioxide Anion Gap BUN Creatinine Estimated GFR Glucose Calcium POC Troponin I Medications Given: Discontinued Medications Acetaminophen (Tylenol) 1,000 mg PO EDNOW ONE Stop: 10/01/18 21:01 Last Admin: 10/01/18 21:09 Dose: 1,000 mg Point of Care Test Results: Chemistry 10/01/18 20:41 POC Troponin I 0.01 ng/mL ng/mL (0.00-0.08) Departure - Departure Disposition: Home, Routine, Self-Care Clinical Impression: Hyponatremia Headache Qualifiers: Headache type: unspecified Headache chronicity pattern: acute headache Intractability: not intractable Qualified Code(s): R51 - Headache Condition: Good Instructions: Lorazepam (By mouth), Hyponatremia (ED), Acute Headache (ED) Additional Instructions: 1. Increase your salt intake tomorrow. 2. Follow-up with your primary doctor within 72 hours. 2. Return to the emergency department immediately for recurrence of headache, nausea, vomiting, numbness, weakness, neck pain, fever or other concerns. Referrals: Natty Nichols MD [Primary Care Provider] - As per Instructions
[2018-10-01 20:57] LABS: PLATELET COUNT 180 10^3/uL (150-400)
[2018-10-01] MEDS ORDERED: ACETAMINOPHEN 500 MG TAB PO ONE (21:00)
[2018-10-01 21:04] LABS: INR 2.44 (0.83-1.16); PROTIME(PATIENT) 25.3 SEC (12.0-15.0)
--- NOTE | 2018-10-01 21:04 | CPEKG ---
Test Reason : OPEN Blood Pressure : / mmHG Vent. Rate : 075 BPM Atrial Rate : 075 BPM P-R Int : 319 ms QRS Dur : 157 ms QT Int : 457 ms P-R-T Axes : 086 -03 137 degrees QTc Int : 511 ms A-V dual-paced rhythm with some inhibition Confirmed by Cherie Delgadillo ([id number]) on 10/01/2018 9:03:46 PM Referred By: CHERIE DELGADILLO Confirmed By:Cherie Delgadillo
[2018-10-01] MEDS ORDERED: LORAZEPAM 1 MG PREPACK#4 BTL TAKEHOME ONE (22:23)
[2018-10-01 22:36] VITALS: BP 167/89
== END 2018-10-01 22:53 | disposition home or self-care (01) ==
DX: E87.1 Hypo-osmolality and hyponatremia (principal); R51 Headache; I10 Essential (primary) hypertension
CPT/HCPCS: 84484-ER